=== PATIENT | female | born 1975 | race Caucasian/White ===

== ENCOUNTER 2018-05-17 04:45 | Emergency (ER) | payer OTHER ==
[2018-05-17] MEDS: ACETAMINOPHEN 325 MG TAB PO (07:03)
[2018-05-17 07:21] LABS: ADD MAN DIFF? NO
[2018-05-17] MEDS: SODIUM CHLORIDE 0.9% 1L BAG IV* (07:21)
[2018-05-17 07:28] LABS: BASOPHIL # 0.1 10^3/ul (0.0-0.1); BASOPHILS % 0.5 % (0.0-2.0); EOSINOPHILS # 0.1 10^3/ul (0.0-0.5); EOSINOPHILS % 0.7 % (0.0-7.0); HEMATOCRIT 42.7 % (37.0-47.0); HEMOGLOBIN 14.4 g/dl (12.0-16.0); LYMPHOCYTES # 1.2 10^3/ul (0.8-2.9); LYMPHOCYTES % 8.4 % (15.0-51.0); MEAN CORPUSCULAR HEMOGLOBIN 31.6 pg (29.0-33.0); MEAN CORPUSCULAR HGB CONC 33.7 g/dl (32.0-37.0); MEAN CORPUSCULAR VOLUME 93.8 fl (82.0-101.0); MEAN PLATELET VOLUME 10.4 fl (7.4-10.4); MONOCYTE # 1.2 10^3/ul (0.3-0.9); MONOCYTES % 8.6 % (0.0-11.0); NEUTROPHIL # 11.2 10^3/ul (1.6-7.5); NEUTROPHILS % 81.1 % (39.0-77.0); PLATELET COUNT 252 10^3/UL (140-415); RED BLOOD COUNT 4.55 10^6/ul (4.20-5.40); RED CELL DISTRIBUTION WIDTH 13.2 % (11.5-14.5)
[2018-05-17 07:28] LABS: WHITE BLOOD COUNT 13.8 10^3/ul (4.8-10.8)
[2018-05-17 07:48] LABS: ALANINE AMINOTRANSFERASE 28 IU/L (13-69); ALBUMIN 4.1 g/dl (3.3-4.9); ALBUMIN/GLOBULIN RATIO 1.13; ALKALINE PHOSPHATASE 93 IU/L (42-121); ANION GAP 13 (8-16); ASPARTATE AMINO TRANSFERASE 32 IU/L (15-46); BILIRUBIN,INDIRECT 0.8 mg/dl (0-1.1); BILIRUBIN,TOTAL 0.8 mg/dl (0.2-1.3); BLOOD UREA NITROGEN 13 mg/dl (7-20); CALCIUM 8.8 mg/dl (8.4-10.2); CARBON DIOXIDE 26 mmol/L (21-31); CHLORIDE 104 mmol/L (97-110); CREATININE 0.94 mg/dl (0.44-1.00); GLUCOSE 144 mg/dl (70-220); POTASSIUM 4.2 mmol/L (3.5-5.1); SODIUM 139 mmol/L (135-144); TOTAL PROTEIN 7.7 g/dl (6.1-8.1)
[2018-05-17 07:51] LABS: LACTIC ACID 2.3 mmol/L (0.5-2.0)
[2018-05-17 07:58] LABS: TROPONIN-I < 0.012 ng/ml (0.000-0.120)
[2018-05-17 08:16] LABS: ADD UMIC NO; UR ASCORBIC ACID NEGATIVE (NEGATIVE); UR BILIRUBIN (Dip) NEGATIVE (NEGATIVE); UR BLOOD (Dip) NEGATIVE (NEGATIVE); UR CLARITY CLEAR (CLEAR); UR COLOR STRAW (YELLOW); UR GLUCOSE (Dip) NEGATIVE (NEGATIVE); UR KETONES (Dip) NEGATIVE (NEGATIVE); UR LEUKOCYTE ESTERASE (Dip) NEGATIVE Leu/ul (NEGATIVE); UR NITRITE (Dip) NEGATIVE (NEGATIVE); UR SPECIFIC GRAVITY (Dip) 1.012 (1.003-1.030); UR TOTAL PROTEIN (Dip) NEGATIVE (NEGATIVE); UR UROBILINOGEN (Dip) NEGATIVE (NEGATIVE)
[2018-05-17 08:28] LABS: INR 0.92; PROTIME 12.4 Sec (11.9-14.9)
[2018-05-17] MEDS: VANCOMYCIN 1 GM (PMX) 250 ML IVPB (08:35)
[2018-05-17] MEDS: CEFEPIME 1GM/50 ML (PMX) 50 ML IVPB (09:22)
[2018-05-17] MEDS ORDERED: ACETAMINOPHEN 325 MG TAB PO (09:30)
[2018-05-17] MEDS ORDERED: ONDANSETRON 4 MG INJ IV (09:30)
[2018-05-17 10:39] LABS: LACTIC ACID 1.5 mmol/L (0.5-2.0)
[2018-05-17] MEDS: FAMOTIDINE 20 MG INJ IV (10:52)
== END 2018-05-17 12:52 | disposition home or self-care (01) ==
LOC: FTE 04:45
DX: A41.9 Sepsis, unspecified organism (principal); R10.13 Epigastric pain
CPT/HCPCS: 36415; 71045; 80053; 81003; 81025; 83605; 84484; 85025; 85610; 85730; 87040; 87086; 87400; 93005; 96361; 96365; 96366; 96368; 96375; 99285-25